=== PATIENT | female | born 1990 | race Caucasian/White ===

== ENCOUNTER → 2022-06-14 | Outpatient (REF) ==
[2022-06-14 13:24] LABS: RSV AMPLIFICATION NEGATIVE (NEGATIVE)
== END ==
LOC: M LABSMTC 10:12
PROVIDERS: ATTEND Family Medicine
DX: Z20.818 Contact with and (suspected) exposure to other bacterial communicable diseases (principal)

== ENCOUNTER → 2022-06-29 | Outpatient (CLI) | payer OTHER | LOC: M LABSMTC 11:20 | PROVIDERS: ATTEND Obstetrics & Gynecology | DX: Z01.812 Encounter for preprocedural laboratory examination (principal); Z20.822 Contact with and (suspected) exposure to COVID-19 ==

== ENCOUNTER 2022-07-04 12:59 | Inpatient (IN) | payer OTHER ==
[2022-07-04] VITALS (10 sets, daily range): BP systolic 115–129; BP diastolic 59–76
[~2022-07-04] VITALS: Ht 170.2 cm; Wt 77.8 kg
[2022-07-04] MEDS ORDERED: VALT500T PO (13:22)
[2022-07-04] MEDS ORDERED: PNV1TABL16 PO (13:22)
[2022-07-04] MEDS ORDERED: FLUT11IN INH (13:22)
[2022-07-04] MEDS ORDERED: TUMS750C5 PO (13:22)
[2022-07-04] MEDS ORDERED: ACET325C5 PO (13:22)
[2022-07-04] MEDS ORDERED: FLON1SPR NARES (13:22)
[2022-07-04] MEDS ORDERED: ALLE180T33 PO (13:22)
[2022-07-04] MEDS ORDERED: HOME MED LIST COMPLETE! XX SCH (13:30)
[2022-07-04] MEDS ORDERED: LR 1,000 ML IV SCH ×2 (13:35→13:45)
[2022-07-04] MEDS ORDERED: OXYTOCIN DRIP 30 UNITS in IV 1 EA IV SCH (13:45)
[2022-07-04] MEDS ORDERED: LIDOCAINE 1% MDV 20ML VIAL INFIL PRN (13:45)
[2022-07-04] MEDS ORDERED: OXYTOCIN DRIP 30 UNITS in IV 1 EA IV PRN ×6 (13:45)
[2022-07-04] MEDS ORDERED: TRANEXAMIC ACID INJection 1,000 MG in NS 100 ML IV PRN (13:45)
[2022-07-04] MEDS ORDERED: OXYTOCIN INJ 10UNITS/ML 1ML VIAL IM PRN (13:45)
[2022-07-04] MEDS ORDERED: OXYTOCIN INJ 10UNITS/ML 1ML VIAL IV PRN (13:45)
[2022-07-04] MEDS ORDERED: METHYLERGONOVINE MALEATE 0.2 MG/ML VIAL (J2210) IM PRN (13:45)
[2022-07-04] MEDS ORDERED: CARBOPROST TROMETHAMINE 250 MCG/ML AMP IM PRN (13:45)
[2022-07-04 13:47] LABS: HEMATOCRIT 44.6 % (36.0-47.0); HEMOGLOBIN 15.3 g/dl (12.0-15.5); MEAN CORPUSCULAR HEMOGLOBIN 32.1 pg (27.0-33.0); MEAN CORPUSCULAR HGB CONC 34.3 g/dl (32.0-36.5); MEAN CORPUSCULAR VOLUME 93.7 fl (80.0-96.0); PLATELET COUNT, AUTOMATED 163 10^3/uL (150-450); RED BLOOD COUNT 4.76 10^6/uL (4.00-5.40); WHITE BLOOD COUNT 12.9 10^3/uL (4.0-10.0)
[2022-07-04] MEDS ORDERED: DOCUSATE SODIUM 100MG CAPSULE PO PRN (14:20)
[2022-07-04] MEDS ORDERED: RHOGAM 300MCG (1500IU) INJ IM SCH (14:20)
[2022-07-04] MEDS ORDERED: MOM 30ML SUSPENSION UDC PO PRN (14:20)
[2022-07-04] MEDS ORDERED: ACETAMINOPHEN 500 MG TAB PO PRN (14:20)
[2022-07-04] MEDS ORDERED: DIBUCAINE 1% OINTMENT 30GM TOP PRN (14:20)
[2022-07-04] MEDS: IBUPROFEN 800 MG TAB PO PRN (16:30)
[2022-07-04] MEDS: METHYLERGONOVINE MALEATE 0.2 MG TAB PO SCH (20:10)
[2022-07-05] MEDS: METHYLERGONOVINE MALEATE 0.2 MG TAB PO SCH ×3 (02:11→15:51)
[2022-07-05] MEDS: IBUPROFEN 800 MG TAB PO PRN ×2 (02:16→15:53)
[2022-07-05 06:02] VITALS: BP 113/59
[2022-07-05] MEDS ORDERED: PRENATAL VITAMINS CHEWABLE TABLET PO SCH (09:00)
[2022-07-05] MEDS ORDERED: FLUTICASONE HFA 110MCG 12GM INHALER (FLOVENT) INH SCH (09:00)
[2022-07-05] MEDS ORDERED: FEXOFENADINE 60MG TAB PO SCH (09:00)
[2022-07-05] MEDS ORDERED: FLUTICASONE PROP 0.05% NASAL SPRAY 16 GM (FLONASE) NARES SCH (09:00)
[2022-07-06] MEDS ORDERED: MEASLES,MUMPS,RUBELLA VACCINE INJ (MMR-II) SC.IMMUN ONE (09:00)
== END 2022-07-05 17:45 | disposition home or self-care (01) | DRG 807 ==
LOC: M LDO 12:59 → M LDI 13:39 → M OBS 17:48
PROVIDERS: ADMIT Obstetrics & Gynecology; ATTEND Obstetrics & Gynecology
PROC: 10E0XZZ Delivery of Products of Conception, External Approach (ICD-10-PCS; principal; 2022-07-04)
PROC: 0HQ9XZZ Repair Perineum Skin, External Approach (ICD-10-PCS; 2022-07-04)
DX: O48.0 Post-term pregnancy (principal); Z37.0 Single live birth; Z3A.40 40 weeks gestation of pregnancy; O62.3 Precipitate labor; O77.0 Labor and delivery complicated by meconium in amniotic fluid; O69.81X0 Labor and delivery complicated by cord around neck, without compression, not applicable or unspecified; O70.0 First degree perineal laceration during delivery; Z79.899 Other long term (current) drug therapy

== ENCOUNTER → 2023-07-27 | Outpatient (REF) ==
[~2023-07-27] MED LIST: ACET325C5 PO; ALLE180T33 PO; FLON1SPR NARES; FLUT12AE6 INH; PNV1TABL16 PO; TUMS750C5 PO; VALT500T PO
== END ==
LOC: M EMP 08:00
PROVIDERS: ATTEND Family Medicine
DX: Z11.52 Encounter for screening for COVID-19 (principal)

== ENCOUNTER 2024-03-26 07:41 | Day surgery (SDC) | payer OTHER ==
[~2024-03-26] VITALS: Ht 170.2 cm; Wt 60.8 kg
[~2024-03-26 07:41] MED LIST changes: +ALBU2.5V10 INH; +CLOB0.0548 TOP
[2024-03-26] MEDS ORDERED: LR 1,000 ML IV SCH (08:00)
[2024-03-26] MEDS ORDERED: MIDAZOLAM INJ 2MG/2ML VIAL As Ordered ONE (08:20)
[2024-03-26] MEDS ORDERED: ONDANSETRON 4MG 2ML VIAL As Ordered ONE (08:20)
[2024-03-26] MEDS ORDERED: propofoL 200 MG/20 ML VIAL As Ordered ONE (08:20)
[2024-03-26] MEDS ORDERED: LIDOCAINE 2% 100MG/5ML SDV (FOR ANES.) As Ordered ONE (08:20)
[2024-03-26 08:41] LABS: HEMATOCRIT 37.9 % (36.0-47.0); MEAN CORPUSCULAR HEMOGLOBIN 31.3 pg (27.0-33.0); MEAN CORPUSCULAR HGB CONC 34.3 g/dl (32.0-36.5); MEAN CORPUSCULAR VOLUME 91.3 fl (80.0-96.0); PLATELET COUNT, AUTOMATED 152 10^3/uL (150-450); RED BLOOD COUNT 4.15 10^6/uL (4.00-5.40); WHITE BLOOD COUNT 4.6 10^3/uL (4.0-10.0)
[2024-03-26] MEDS ORDERED: PHENYLephrine 500MCG 5ML (100MCG/ML) SYRINGE As Ordered ONE (09:20)
[2024-03-26] MEDS ORDERED: ePHEDrine SULFATE 25 MG/5 ML(5MG/ML) SYRINGE As Ordered ONE (09:21)
[2024-03-26] MEDS ORDERED: KETOROLAC 60MG 2ML VIAL As Ordered ONE (09:39)
[2024-03-26] MEDS: LIDOCAINE 1% SDV 30ML VIAL As Ordered ONE (09:40)
[2024-03-26] MEDS ORDERED: ACETAMINOPHEN 1000MG 100ML IV BAG As Ordered ONE (09:40)
[2024-03-26 11:10] VITALS: BP 115/65; TEMP 97; O2SAT 100
== END 2024-03-26 11:15 | disposition home or self-care (01) ==
LOC: M SDC 07:41
PROVIDERS: ATTEND Specialist
DX: T83.32XA Displacement of intrauterine contraceptive device, initial encounter (principal); J30.2 Other seasonal allergic rhinitis; J45.20 Mild intermittent asthma, uncomplicated
CPT/HCPCS: 36415; 58562; 81025; 85027; J0131; J1100; J1885; J2250; J2371; J2405

== ENCOUNTER → 2024-04-10 | Outpatient (REF) | LOC: M EMP 07:50 | PROVIDERS: ATTEND Family Medicine | DX: Z20.822 Contact with and (suspected) exposure to COVID-19 (principal) ==

== ENCOUNTER → 2024-09-16 | Outpatient (CLI) | payer OTHER | LOC: M LAB 10:27 | PROVIDERS: ATTEND General Practice | DX: O46.91 Antepartum hemorrhage, unspecified, first trimester (principal); Z3A.00 Weeks of gestation of pregnancy not specified ==

== ENCOUNTER → 2024-09-18 | Outpatient (CLI) | payer OTHER | LOC: M LAB 13:32 | PROVIDERS: ATTEND General Practice | DX: O26.859 Spotting complicating pregnancy, unspecified trimester (principal); Z3A.00 Weeks of gestation of pregnancy not specified ==

== ENCOUNTER → 2024-10-28 | Outpatient (REF) | LOC: M EMP 11:50 | PROVIDERS: ATTEND Family Medicine | DX: Z11.52 Encounter for screening for COVID-19 (principal) ==

== ENCOUNTER → 2025-01-27 | Outpatient (REF) | LOC: M EMP 11:45 | PROVIDERS: ATTEND Family Medicine | DX: Z11.52 Encounter for screening for COVID-19 (principal) ==

== ENCOUNTER → 2025-02-10 | Outpatient (CLI) | payer OTHER ==
[2025-02-10 13:33] LABS: PLATELET COUNT, AUTOMATED 163 10^3/uL (150-450)
[2025-02-10 13:34] LABS: GLUCOSE CHALLENGE TEST 1 HOUR 75 MG/DL (LESS THAN 140)
[2025-02-10 14:08] LABS: HIV 1&2 SCREEN NEGATIVE (NEGATIVE)
[2025-02-10 14:16] LABS: HEPATITIS C VIRUS ABY INDEX 0.03 INDEX (<0.8)
[2025-02-10 16:41] LABS: Trichomonas vaginalis (AMP) NOT DETECTED (NEGATIVE)
[2025-02-10 17:06] LABS: GC DNA AMPLIFICATION NEGATIVE (NEGATIVE)
== END ==
LOC: M PLALAB 10:02
PROVIDERS: ATTEND Nurse Practitioner Family
DX: Z34.80 Encounter for supervision of other normal pregnancy, unspecified trimester (principal)

== ENCOUNTER → 2025-04-21 | Outpatient (REF) | payer OTHER | LOC: M SFHCWAGY 13:11 | PROVIDERS: ATTEND Advanced Practice Midwife | DX: Z34.03 Encounter for supervision of normal first pregnancy, third trimester (principal); Z3A.36 36 weeks gestation of pregnancy ==

== ENCOUNTER 2025-05-21 12:11 | Inpatient (IN) | payer OTHER ==
[~2025-05-21] VITALS: Ht 170.2 cm; Wt 76.6 kg
[2025-05-21] VITALS (15 sets, daily range): BP systolic 103–125; BP diastolic 58–73; O2SAT 99
[2025-05-21] MEDS ORDERED: PRENTAB9 PO (12:29)
[2025-05-21] MEDS ORDERED: ACET-907 PO (12:29)
[2025-05-21] MEDS ORDERED: TUMS500C PO (12:29)
[2025-05-21] MEDS ORDERED: VALA-3 PO (12:29)
[2025-05-21] MEDS ORDERED: HOME MED LIST COMPLETE! XX SCH (12:30)
[2025-05-21] MEDS ORDERED: OXYTOCIN INJ 10UNITS/ML 1ML VIAL IM PRN (12:55)
[2025-05-21] MEDS ORDERED: CARBOPROST TROMETHAMINE 250 MCG/ML AMP IM PRN (12:55)
[2025-05-21] MEDS ORDERED: OXYTOCIN DRIP 30 UNITS in IV 1 EA IV PRN (12:55)
[2025-05-21] MEDS ORDERED: METHYLERGONOVINE MALEATE 0.2 MG/ML 1 ML VIAL IM PRN (12:55)
[2025-05-21] MEDS: LR 1,000 ML IV SCH (13:44)
[2025-05-21] MEDS: OXYTOCIN DRIP 30 UNITS in IV 1 EA IV SCH (13:45)
[2025-05-21 15:37] LABS: PLATELET COUNT, AUTOMATED 144 10^3/uL (150-450)
[2025-05-21 16:34] LABS: HIV 1&2 SCREEN NEGATIVE (NEGATIVE)
[2025-05-21 16:42] LABS: HEPATITIS C VIRUS ABY INDEX < 0.02 INDEX (<0.8)
[2025-05-21] MEDS: TRANEXAMIC ACID INJection 1,000 MG in NS 100 ML IV PRN (18:02)
[2025-05-21] MEDS: OXYTOCIN DRIP 30 UNITS in IV 1 EA IV PRN (18:05)
[2025-05-21] MEDS: LIDOCAINE 1% MDV 20 ML VIAL INFIL PRN (18:09)
[2025-05-21] MEDS ORDERED: DIBUCAINE 1% OINTMENT 30 GM TOP PRN (18:30)
[2025-05-21] MEDS ORDERED: RHOGAM 300MCG (1500IU) INJ IM SCH (18:30)
[2025-05-21] MEDS ORDERED: ACETAMINOPHEN 325 MG TAB PO PRN (18:30)
[2025-05-21] MEDS ORDERED: METHYLERGONOVINE MALEATE 0.2 MG TAB PO PRN (18:30)
[2025-05-21] MEDS ORDERED: ACETAMINOPHEN 500 MG TAB PO PRN (18:30)
[2025-05-21] MEDS: IBUPROFEN 800 MG TAB PO PRN (20:26)
[2025-05-22 05:29] VITALS: BP 115/62; O2SAT 96
[2025-05-22] MEDS: PRENATAL VITAMINS CHEWABLE TABLET PO SCH (09:34)
[2025-05-22 18:10] VITALS: BP 103/60; O2SAT 96
[2025-05-22] MEDS: IBUPROFEN 600 MG TAB PO PRN (18:17)
[2025-05-23 05:41] VITALS: BP 103/57; O2SAT 97
[2025-05-23] MEDS: MEASLES,MUMPS,RUBELLA VACCINE INJ (MMR-II) SC.IMMUN ONE (07:48)
[2025-05-23] MEDS: DOCUSATE SODIUM 100 MG CAPSULE PO PRN (09:58)
== END 2025-05-23 13:44 | disposition home or self-care (01) | DRG 807 ==
LOC: M LDI 12:11 → M OBS 19:45
PROVIDERS: ADMIT Advanced Practice Midwife; ATTEND Advanced Practice Midwife
PROC: 10E0XZZ Delivery of Products of Conception, External Approach (ICD-10-PCS; principal; 2025-05-21)
PROC: 3E033VJ Introduction of Other Hormone into Peripheral Vein, Percutaneous Approach (ICD-10-PCS; 2025-05-21)
DX: O42.02 Full-term premature rupture of membranes, onset of labor within 24 hours of rupture (principal); Z37.0 Single live birth; Z3A.40 40 weeks gestation of pregnancy; O69.81X0 Labor and delivery complicated by cord around neck, without compression, not applicable or unspecified